=== PATIENT | male | born 1955 ===

== ENCOUNTER 2019-11-01 11:12 | Inpatient (IN) ==
[2019-11-01] MEDS ORDERED: SODIUM CHLORIDE 0.9% 1000ML 1,000 ML IV ONE (11:48)
[2019-11-01 12:14] LABS: Basophils # (auto) 0.03 K/uL (0-0.2); Basophils % (auto) 0.2 %; Eosinophils # (auto) 0.28 K/uL (0-0.5); Eosinophils % (auto) 1.4 %; Hemoglobin 13.8 g/dL (14.0-18.0); Immature Granulocytes # (auto) 0.06 K/uL (0.00-0.02); Immature Granulocytes % (auto) 0.3 %; Lymphocytes # (auto) 2.09 K/uL (1.2-3.4); Lymphocytes % (auto) 10.5 %; Mean Corpuscular Hemoglobin 29.9 pg (25-34); Mean Corpuscular Hgb Conc 34.5 g/dL (32-36); Mean Corpuscular Volume 86.8 fL (80-100); Mean Platelet Volume 9.6 fL (7.4-10.4); Monocytes # (auto) 1.94 K/uL (0.11-0.59); Monocytes % (auto) 9.8 %; Neutrophils # (auto) 15.48 K/uL (1.4-6.5); Neutrophils % (auto) 77.8 %; Platelet Count 286 K/uL (130-400); RDW Coefficient of Variation 13.6 % (11.5-14.5); RDW Standard Deviation 43.3 fL (36.4-46.3); Red Blood Count 4.61 M/uL (4.7-6.1); White Blood Count 19.88 K/uL (4.8-10.8)
[2019-11-01] MEDS ORDERED: ONDANSETRON INJ 2 MG/ML 2 ML VIAL ONE (12:18)
[2019-11-01 12:20] LABS: Appearance Urine Cloudy (Clear); Bilirubin Urine Negative (Negative); Blood Urine Negative (Negative); Color Urine Dark Yellow; Epithelial Cell Urine Auto 20-30 /lpf (0-5); Glucose Urine UA Negative (Negative); Ketones Urine Trace (Negative); Leukocyte Esterase Urine Trace (Negative); Nitrite Urine Negative (Negative); Protein Urine 1+ (Negative); RBC Urine Automated 0-4 /hpf (0-4); Specific Gravity Urine 1.027 (1.000-1.030); Urobilinogen Urine Negative (Negative); pH Urine 5.5 (4.5-7.5)
[2019-11-01 12:33] LABS: Mucus Urine Present (None Prsent)
--- NOTE | 2019-11-01 12:33 | Emergency Department Note ---
History of Present Illness General Chief Complaint: Abdominal Pain Stated Complaint: RIGHT SIDE Time Seen by Provider: 11/01/19 11:30 History of Present Illness Maximum Pain Intensity: 7 This patient is a 64-year-old male who presents to the emergency department with complaints of right lower abdominal pain for the last 2 weeks. He denies any nausea, vomiting or diarrhea. No fever. No urinary symptoms. He has tried ibuprofen with minimal relief of his symptoms. The pain does not radiate anywhere. Of note, the patient also complains of dyspnea on exertion that has been going on for several months. He denies any chest pain. No lightheadedness. The patient reports eating and drinking normally. He denies any cough or fever. He does note several tick bites over the last few years. Home Medications Home Medications Medication Instructions Recorded Confirmed Type vit C 250 mg-E 200 unit-zinc 40 1 tab PO QPM cap 03/29/19 11/01/19 History mg-copper 1 gc-dplpfu-qitfum capsule aspirin 81 mg tablet 81 mg PO DAILY #30 tab 04/07/19 11/01/19 History rosuvastatin 5 mg tablet 5 mg PO QPM 09/14/19 11/01/19 History amlodipine 2.5 mg tablet 2.5 mg PO DAILY #90 tab 10/07/19 11/01/19 Rx losartan 100 mg tablet 100 mg PO DAILY #90 tab 10/07/19 11/01/19 Rx sertraline 100 mg tablet 100 mg PO DAILY #90 tab 10/07/19 11/01/19 Rx triamcinolone acetonide 0.1 % 1 appln TOP BID PRN #30 gm 10/18/19 11/01/19 Rx topical cream metformin 500 mg PO BID 11/01/19 11/01/19 History Allergies Allergy/AdvReac Type Severity Reaction Status Date / Time fentanyl Allergy Unconscious Verified 11/01/19 18:41 rosuvastatin AdvReac headache Verified 11/01/19 12:35 Past Med/Surg History Medical History Colon polyps (Resolved) Surgical History H/O colonoscopy S/P appendectomy S/P cholecystectomy Family History Mother Cancer Social History marital status: Current Living Situation: Spouse current occupational status: retired Feels Safe at Home: Yes Smoking Status: Never smoker Number of Years Since Quit: 39 ; Second Hand Exposure: No ; Hx Alcohol Use: Yes Alcohol Intake Frequency: Rarely Hx Substance Use: No Childhood Exposure to Second-Hand Smoke: No caffeine: Yes (coffee) Dental Care, Regularly: No Physical Activity Frequency: Does not Exercise Seatbelt Use: always Review of Systems A total of 10 systems reviewed and were otherwise negative Physical Exam Vital Signs: Vital Signs - 24 hr 11/01/19 11:13 11/01/19 13:12 11/01/19 15:00 Temperature 36.7 C Temperature Source Oral Pulse Rate 78 Pulse Rate [Finger ] 68 61 Pulse Rate from Sp O2 Sensor Pulse Rhythm [Fing er] Regular Regular Pulse Strength [Fi nger] Normal Normal Respiratory Rate 18 18 20 Respiratory Effort / Characteristics Non-Labored Non-Labored Sponta neous Non-Labored Sponta neous Respiratory Depth Normal Normal Normal Respiratory Patter n Regular Regular Blood Pressure 137/81 Blood Pressure [Ri ght Arm] 145/82 H 134/78 Blood Pressure Enma n 99 Blood Pressure Enma n [Right Arm] 103 96 Blood Pressure Pos ition [Right Arm] Lying Lying Pulse Oximetry 97 99 98 Oxygen Delivery Me thod Room Air Room Air Room Air Oxygen Flow Rate Sepsis Recent Feve r Within 48 Hours No Sepsis New/Unexpla ined Change in Men samia Status No Sepsis Action Take n by Nursing No Action Required 11/01/19 17:00 11/01/19 18:15 11/01/19 18:22 Temperature Temperature Source Pulse Rate 57 L 56 L Pulse Rate [Finger ] 67 Pulse Rate from Sp O2 Sensor 58 L 57 L Pulse Rhythm [Fing er] Regular Pulse Strength [Fi nger] Normal Respiratory Rate 18 21 16 Respiratory Effort / Characteristics Non-Labored Sponta neous Respiratory Depth Normal Respiratory Patter n Regular Blood Pressure 146/80 H Blood Pressure [Ri ght Arm] 133/75 Blood Pressure Enma n 97 Blood Pressure Enma n [Right Arm] 94 Blood Pressure Pos ition [Right Arm] Lying Pulse Oximetry 98 95 95 Oxygen Delivery Me thod Room Air Nasal Cannula Nasal Cannula Oxygen Flow Rate 2 2 Sepsis Recent Feve r Within 48 Hours Sepsis New/Unexpla ined Change in Men samia Status Sepsis Action Take n by Nursing 11/01/19 18:25 11/01/19 18:26 11/01/19 18:30 Temperature Temperature Source Pulse Rate 58 L 58 L 59 L Pulse Rate [Finger ] Pulse Rate from Sp O2 Sensor 59 L 58 L 58 L Pulse Rhythm [Fing er] Pulse Strength [Fi nger] Respiratory Rate 19 17 23 Respiratory Effort / Characteristics Respiratory Depth Respiratory Patter n Blood Pressure 128/59 L 135/70 Blood Pressure [Ri ght Arm] Blood Pressure Enma n 68 92 Blood Pressure Enma n [Right Arm] Blood Pressure Pos ition [Right Arm] Pulse Oximetry 96 96 96 Oxygen Delivery Me thod Nasal Cannula Nasal Cannula Nasal Cannula Oxygen Flow Rate 2 2 2 Sepsis Recent Feve r Within 48 Hours Sepsis New/Unexpla ined Change in Men samia Status Sepsis Action Take n by Nursing 11/01/19 18:31 11/01/19 18:35 11/01/19 18:36 Temperature Temperature Source Pulse Rate 55 L 52 L 53 L Pulse Rate [Finger ] Pulse Rate from Sp O2 Sensor 54 L 53 L 54 L Pulse Rhythm [Fing er] Pulse Strength [Fi nger] Respiratory Rate 17 15 16 Respiratory Effort / Characteristics Respiratory Depth Respiratory Patter n Blood Pressure 117/61 Blood Pressure [Ri ght Arm] Blood Pressure Enma n 70 Blood Pressure Enma n [Right Arm] Blood Pressure Pos ition [Right Arm] Pulse Oximetry 96 96 96 Oxygen Delivery Me thod Nasal Cannula Nasal Cannula Nasal Cannula Oxygen Flow Rate 2 2 2 Sepsis Recent Feve r Within 48 Hours Sepsis New/Unexpla ined Change in Men samia Status Sepsis Action Take n by Nursing 11/01/19 18:40 11/01/19 18:41 11/01/19 18:45 Temperature Temperature Source Pulse Rate 53 L 49 L 47 L Pulse Rate [Finger ] Pulse Rate from Sp O2 Sensor 54 L 49 L 48 L Pulse Rhythm [Fing er] Pulse Strength [Fi nger] Respiratory Rate 17 15 18 Respiratory Effort / Characteristics Respiratory Depth Respiratory Patter n Blood Pressure 107/54 L 97/56 L Blood Pressure [Ri ght Arm] Blood Pressure Enma n 65 67 Blood Pressure Enma n [Right Arm] Blood Pressure Pos ition [Right Arm] Pulse Oximetry 96 95 97 Oxygen Delivery Me thod Nasal Cannula Nasal Cannula Oxygen Flow Rate 2 2 Sepsis Recent Feve r Within 48 Hours Sepsis New/Unexpla ined Change in Men samia Status Sepsis Action Take n by Nursing 11/01/19 18:46 11/01/19 18:50 11/01/19 18:51 Temperature Temperature Source Pulse Rate 49 L 52 L 53 L Pulse Rate [Finger ] Pulse Rate from Sp O2 Sensor 49 L 53 L 53 L Pulse Rhythm [Fing er] Pulse Strength [Fi nger] Respiratory Rate 16 13 13 Respiratory Effort / Characteristics Respiratory Depth Respiratory Patter n Blood Pressure 112/65 Blood Pressure [Ri ght Arm] Blood Pressure Enma n 72 Blood Pressure Enma n [Right Arm] Blood Pressure Pos ition [Right Arm] Pulse Oximetry 98 96 97 Oxygen Delivery Me thod Oxygen Flow Rate Sepsis Recent Feve r Within 48 Hours Sepsis New/Unexpla ined Change in Men samia Status Sepsis Action Take n by Nursing 11/01/19 19:07 11/01/19 19:08 11/01/19 19:10 Temperature Temperature Source Pulse Rate 56 L 57 L 58 L Pulse Rate [Finger ] Pulse Rate from Sp O2 Sensor 56 L 57 L 59 L Pulse Rhythm [Fing er] Pulse Strength [Fi nger] Respiratory Rate 15 19 17 Respiratory Effort / Characteristics Respiratory Depth Respiratory Patter n Blood Pressure 153/75 H 135/81 Blood Pressure [Ri ght Arm] Blood Pressure Enma n 106 86 Blood Pressure Enma n [Right Arm] Blood Pressure Pos ition [Right Arm] Pulse Oximetry 98 98 98 Oxygen Delivery Me thod Oxygen Flow Rate Sepsis Recent Feve r Within 48 Hours Sepsis New/Unexpla ined Change in Men samia Status Sepsis Action Take n by Nursing 11/01/19 19:11 11/01/19 19:15 11/01/19 19:16 Temperature Temperature Source Pulse Rate 55 L 54 L 54 L Pulse Rate [Finger ] Pulse Rate from Sp O2 Sensor 55 L 54 L 53 L Pulse Rhythm [Fing er] Pulse Strength [Fi nger] Respiratory Rate 15 14 14 Respiratory Effort / Characteristics Respiratory Depth Respiratory Patter n Blood Pressure 149/79 H Blood Pressure [Ri ght Arm] Blood Pressure Emna n 111 Blood Pressure Enma n [Right Arm] Blood Pressure Pos ition [Right Arm] Pulse Oximetry 98 98 99 Oxygen Delivery Me thod Oxygen Flow Rate Sepsis Recent Feve r Within 48 Hours Sepsis New/Unexpla ined Change in Men samia Status Sepsis Action Take n by Nursing 11/01/19 19:20 11/01/19 19:21 11/01/19 19:25 Temperature Temperature Source Pulse Rate 54 L 56 L 55 L Pulse Rate [Finger ] Pulse Rate from Sp O2 Sensor 54 L 55 L 55 L Pulse Rhythm [Fing er] Pulse Strength [Fi nger] Respiratory Rate 15 19 17 Respiratory Effort / Characteristics Respiratory Depth Respiratory Patter n Blood Pressure 149/77 H 144/79 H Blood Pressure [Ri ght Arm] Blood Pressure Enma n 106 95 Blood Pressure Enma n [Right Arm] Blood Pressure Pos ition [Right Arm] Pulse Oximetry 97 99 100 Oxygen Delivery Me thod Oxygen Flow Rate Sepsis Recent Feve r Within 48 Hours Sepsis New/Unexpla ined Change in Men samia Status Sepsis Action Take n by Nursing 11/01/19 19:26 11/01/19 19:30 11/01/19 19:31 Temperature Temperature Source Pulse Rate 54 L 54 L 55 L Pulse Rate [Finger ] Pulse Rate from Sp O2 Sensor 54 L 54 L 55 L Pulse Rhythm [Fing er] Pulse Strength [Fi nger] Respiratory Rate 21 12 12 Respiratory Effort / Characteristics Respiratory Depth Respiratory Patter n Blood Pressure 152/84 H Blood Pressure [Ri ght Arm] Blood Pressure Enma n 110 Blood Pressure Enma n [Right Arm] Blood Pressure Pos ition [Right Arm] Pulse Oximetry 100 100 99 Oxygen Delivery Me thod Oxygen Flow Rate Sepsis Recent Feve r Within 48 Hours Sepsis New/Unexpla ined Change in Men samia Status Sepsis Action Take n by Nursing 11/01/19 19:35 11/01/19 19:36 11/01/19 19:40 Temperature Temperature Source Pulse Rate 58 L 60 59 L Pulse Rate [Finger ] Pulse Rate from Sp O2 Sensor 58 L 58 L 60 Pulse Rhythm [Fing er] Pulse Strength [Fi nger] Respiratory Rate 19 14 16 Respiratory Effort / Characteristics Respiratory Depth Respiratory Patter n Blood Pressure 160/82 H 158/82 H Blood Pressure [Ri ght Arm] Blood Pressure Enma n 87 109 Blood Pressure Enma n [Right Arm] Blood Pressure Pos ition [Right Arm] Pulse Oximetry 98 100 99 Oxygen Delivery Me thod Oxygen Flow Rate Sepsis Recent Feve r Within 48 Hours Sepsis New/Unexpla ined Change in Men samia Status Sepsis Action Take n by Nursing Constitutional: WD/WN, vitals as above Eyes: EOM intact bilaterally ENMT: external ear and nose normal, oropharynx normal Neck: trachea midline Respiratory: normal respiratory effort, lungs clear to auscultation Cardiovascular: RRR, no murmur, no edema Gastrointestinal (Abdomen): Tenderness to palpation in the right lower quadrant. No guarding or rebound tenderness. Musculoskeletal: no cyanosis or clubbing, extremities motor strength 5/5 Skin: no rashes, warm and dry Neurologic: Alert and oriented x3. No focal motor deficits. Psychiatric: Acting appropriately Course Patient was seen and examined Vital signs including blood pressure were reviewed medications list was verified with patient Labs were obtained, and a saline lock was established The patient declined pain medication. He was hydrated with 1 L of normal collin ine. Upon reevaluation, the patient was complaining of pain. We discussed his results. He voiced understanding. The case was discussed with general surgery and subsequently the hospitalist team. The patient was ordered morphine 4 mg IV, Zofran 4 mg IV and Zosyn 4.5 g IV. Upon reevaluation, the patient was still complaining of pain. He was given fentanyl 75 mcg IV. Shortly thereafter, I was called to the bedside as the patient appeared to be having a seizure. He was rigid. There was urinary and bowel incontinence. There was diaphoresis and confusion. An EKG was repeated and unchanged. The patient was reevaluated and oriented. We discussed his results. He voiced understanding. The patient will be evaluated by the hospitalist team for likely inpatient management. Consultations Consultation #1: [facility] general surgery Consultation #2: [facility] hospitalist group Administered Medications Ioversol (Optiray 320 125ml) 117 ml IV ONCE PRN PRN Reason: Interaction Checking Stop: 11/05/19 14:17 Last Admin: 11/01/19 14:19 Dose: 117 ml Documented by: [id number] Discontinued Medications Fentanyl Citrate (Fentanyl Citrate) 75 mcg IV NOW STA Stop: 11/01/19 17:56 Last Admin: 11/01/19 17:58 Dose: 75 mcg Documented by: [id number] Sodium Chloride (Nss 1000ml) 1,000 mls @ 999 mls/hr IV .Q1H1M ONE Stop: 11/01/19 12:48 Last Infusion: 11/01/19 13:07 Dose: 0 mls/hr Documented by: [id number] Admin: 11/01/19 12:06 Dose: 999 mls/hr Documented by: [id number] Piperacillin Sod/Tazobactam Sod (Zosyn) 4.5 gm in 120 mls @ 240 mls/hr IV NOW ONE Stop: 11/01/19 17:44 Last Infusion: 11/01/19 17:49 Dose: 0 mls/hr Documented by: [id number] Admin: 11/01/19 17:19 Dose: 240 mls/hr Documented by: [id number] Morphine Sulfate (Morphine Sulfate) 4 mg IV NOW STA Stop: 11/01/19 17:16 Last Admin: 11/01/19 17:19 Dose: 4 mg Documented by: [id number] Ondansetron HCl (Zofran) Confirm Administered Dose 4 mg .ROUTE .STK-MED ONE Stop: 11/01/19 12: Last Admin: 11/01/19 12:20 Dose: 4 mg Documented by: [id number] Ondansetron HCl (Zofran) 4 mg IV NOW STA Stop: 11/01/19 17:16 Last Admin: 11/01/19 17:19 Dose: 4 mg Documented by: [id number] Medical Decision Making Differential Diagnosis Differential diagnosis: Ureteral stone, bowel obstruction, infectious etiology, mass, pulmonary embolus, CHF, cardiac disease, UTI, pneumonia, tickborne illness, among others Medical Records Attestation: I reviewed the patient's medical records. Home Medications Current Medication List: was personally reviewed by me Laboratory Data Attestation: I reviewed the patient's lab results. Result diagrams: 11/01/19 12:05 11/01/19 12:05 Lab Results 11/01/19 11/01/19 11/01/19 Range/Units 11:58 12:05 12:05 WBC 19.88 H (4.8-10.8) K/uL RBC 4.61 L (4.7-6.1) M/uL Hgb 13.8 L (14.0-18.0) g/dL Hct 40.0 L (42-52) % MCV 86.8 (80-100) fL MCH 29.9 (25-34) pg MCHC 34.5 (32-36) g/dL RDW Std Deviation 43.3 (36.4-46.3) fL RDW Coeff of Sean 13.6 (11.5-14.5) % Plt Count 286 (130-400) K/uL MPV 9.6 (7.4-10.4) fL Immature Gran % (Auto) 0.3 % Neut % (Auto) 77.8 % Lymph % (Auto) 10.5 % White % (Auto) 9.8 % Eos % (Auto) 1.4 % Baso % (Auto) 0.2 % Immature Gran # (Auto) 0.06 H (0.00-0.02) K/uL Neut # (Auto) 15.48 H (1.4-6.5) K/uL Lymph # (Auto) 2.09 (1.2-3.4) K/uL White # (Auto) 1.94 H (0.11-0.59) K/uL Eos # (Auto) 0.28 (0-0.5) K/uL Baso # (Auto) 0.03 (0-0.2) K/uL Echinocytes 1+ Sodium 139 (136-145) mmol/L Potassium 3.8 (3.5-5.1) mmol/L Chloride 107 (98-107) mmol/L Carbon Dioxide 26 (21-32) mmol/L Anion Gap 6.0 (3-11) BUN 17 (7-18) mg/dl Creatinine 1.11 (0.6-1.4) mg/dl Est Cr Clr Drug Dosing 89.6 ml/min Est GFR ( Amer) 80.3 Est GFR (Non-Af Amer) 69.3 BUN/Creatinine Ratio 15.0 (10-20) Glucose 126 H (70-99) mg/dl Lactate (0.4-2.0) mmol/L Calcium 9.0 (8.5-10.1) mg/dl Total Bilirubin 0.5 (0.2-1) mg/dl AST 17 (15-37) U/L ALT 29 (12-78) U/L Alkaline Phosphatase 77 (45-117) U/L Troponin I < 0.015 (0-0.045) ng/ml Total Protein 7.3 (6.4-8.2) gm/dl Albumin 3.0 L (3.4-5.0) gm/dl Globulin 4.3 H (2.5-4.0) gm/dl Albumin/Globulin Ratio 0.7 L (0.9-2) TSH 1.310 (0.300-4.500) uIu/ml Urine Color Dark Yellow Urine Appearance Cloudy A (Clear) Urine pH 5.5 (4.5-7.5) Ur Specific [place] 1.027 (1.000-1.030) Urine Protein 1+ H (Negative) Urine Glucose (UA) Negative (Negative) Urine Ketones Trace H (Negative) Urine Blood Negative (Negative) Urine Nitrite Negative (Negative) Urine Bilirubin Negative (Negative) Urine Urobilinogen Negative (Negative) Ur Leukocyte Esterase Trace H (Negative) Urine WBC (Auto) 1-5 (0-5) /hpf Urine RBC (Auto) 0-4 (0-4) /hpf U Hyaline Cast (Auto) 1-5 (0-5) /lpf U Epithel Cells (Auto) 20-30 H (0-5) /lpf Urine Bacteria (Auto) 1+ H (Negative) Urine Mucus Present A (None Prsent) Anaplasma Smear See Comment Lyme Disease IgG Ab (Negative) Lyme Disease IgM Ab (Negative) 11/01/19 11/01/19 Range/Units 12:05 15:16 WBC (4.8-10.8) K/uL RBC (4.7-6.1) M/uL Hgb (14.0-18.0) g/dL Hct (42-52) % MCV (80-100) fL MCH (25-34) pg MCHC (32-36) g/dL RDW Std Deviation (36.4-46.3) fL RDW Coeff of Sean (11.5-14.5) % Plt Count (130-400) K/uL MPV (7.4-10.4) fL Immature Gran % (Auto) % Neut % (Auto) % Lymph % (Auto) % White % (Auto) % Eos % (Auto) % Baso % (Auto) % Immature Gran # (Auto) (0.00-0.02) K/uL Neut # (Auto) (1.4-6.5) K/uL Lymph # (Auto) (1.2-3.4) K/uL White # (Auto) (0.11-0.59) K/uL Eos # (Auto) (0-0.5) K/uL Baso # (Auto) (0-0.2) K/uL Echinocytes Sodium (136-145) mmol/L Potassium (3.5-5.1) mmol/L Chloride (98-107) mmol/L Carbon Dioxide (21-32) mmol/L Anion Gap (3-11) BUN (7-18) mg/dl Creatinine (0.6-1.4) mg/dl Est Cr Clr Drug Dosing ml/min Est GFR ( Amer) Est GFR (Non-Af Amer) BUN/Creatinine Ratio (10-20) Glucose (70-99) mg/dl Lactate 0.8 (0.4-2.0) mmol/L Calcium (8.5-10.1) mg/dl Total Bilirubin (0.2-1) mg/dl AST (15-37) U/L ALT (12-78) U/L Alkaline Phosphatase (45-117) U/L Troponin I (0-0.045) ng/ml Total Protein (6.4-8.2) gm/dl Albumin (3.4-5.0) gm/dl Globulin (2.5-4.0) gm/dl Albumin/Globulin Ratio (0.9-2) TSH (0.300-4.500) uIu/ml Urine Color Urine Appearance (Clear) Urine pH (4.5-7.5) Ur Specific [place] (1.000-1.030) Urine Protein (Negative) Urine Glucose (UA) (Negative) Urine Ketones (Negative) Urine Blood (Negative) Urine Nitrite (Negative) Urine Bilirubin (Negative) Urine Urobilinogen (Negative) Ur Leukocyte Esterase (Negative) Urine WBC (Auto) (0-5) /hpf Urine RBC (Auto) (0-4) /hpf U Hyaline Cast (Auto) (0-5) /lpf U Epithel Cells (Auto) (0-5) /lpf Urine Bacteria (Auto) (Negative) Urine Mucus (None Prsent) Anaplasma Smear Lyme Disease IgG Ab Negative (Negative) Lyme Disease IgM Ab Negative (Negative) Imaging Data Attestation: I personally reviewed and interpreted this imaging study as follows: Radiologist's Impression: CTA chest IMPRESSION: 1. There is no evidence of pulmonary embolus in the main, lobar, or segmental pulmonary arteries. 2. Trace right pleural effusion. 3. No airspace consolidation is seen typical for pneumonia. 4. Additional findings as above. ACT 112: Negative or not required by law. Electronically signed by: Michael Robledo M.D. 11/01/2019 2:37 PM Dictated: 11/01/190 Transcribed: 11/01/191429 CT abdomen and pelvis with IV and oral contrast IMPRESSION: 1. 5.9 x 5.8 cm thick-walled hypodense mass-like abnormality of the base of the cecum with moderate inflammation and tract extending to the abdominal wall. Indistinct anterior wall may reflect a contained perforation. No free air. The findings are suspicious for a colonic adenocarcinoma. Alternatively, perforated cecal diverticulitis with abscess could appear similar. Discussed with Roxie Smith at time of dictation. 2. A few prominent ileocolic lymph nodes. No pathologically enlarged lymph nodes. 3. No hepatic lesions. 4. No bowel obstruction. ACT 112: Negative or not required by law. Electronically signed by: Pedro Tovar M.D. 11/01/2019 2:55 PM Dictated: 11/01/191426 Transcribed: 11/01/191426 CT head without contrast IMPRESSION: No acute intracranial abnormality. ACT 112: Negative or not required by law. The above report was generated using voice recognition software. It may contain grammatical, syntax or spelling errors. Electronically signed by: Guicho Villa M.D. 11/01/2019 7:11 PM Dictated: 11/01/191908 Transcribed: 11/01/191908 ECG Data Attestation: I personally reviewed and interpreted this ECG as follows: Indication: other Rate (beats per minute): 66 Rhythm: normal sinus Comparison ECG Date: no prior available Additional Comments: No acute ischemic changes noted. No ectopy. No prior for comparison. MDM Narrative This patient is a 64-year-old male who presents the emergency department with a main complaint of right lower abdominal pain in addition to significant fatigue. On exam, he was tender to palpation in that area. His labs reveal significant leukocytosis. Imaging is concerning for possible diverticulitis with abscess versus malignancy. Given the patient's white count, I was concerned for infection. For this reason, the patient was covered with IV antibiotics. General surgery was consulted. They felt IV antibiotic therapy alone at this point is appropriate. The patient will be admitted for further treatment. Impression & Plan Intra-abdominal abscess Discharge Plan Visit Data Chief Complaint: Abdominal Pain Stated Complaint: RIGHT SIDE ED Provider: Derick Martinez ED Midlevel Provider: Roxie Smith Discharge Problem: Intra-abdominal abscess Patient Disposition: Admitted As Inpatient Discharge Instructions Interventions: ED Discharge Assessment Last Done: 11/01/19 19:48 Forms Stand Alone Forms: Call Back Authorization, My [facility], Important Visit Information Prescriptions Prescriptions: No Action sertraline 100 mg tablet 100 mg PO DAILY Qty: 90 RF: 0 triamcinolone acetonide 0.1 % cream 1 appln TOP BID PRN (Reason: rash) Qty: 30 RF: 0 losartan 100 mg tablet 100 mg PO DAILY Qty: 90 RF: 0 amlodipine 2.5 mg tablet 2.5 mg PO DAILY Qty: 90 RF: 0 PreserVision AREDS-2 [id number] aw-[id number]-mg capsule 1 tab PO QPM RF: 0 aspirin 81 mg tablet 81 mg PO DAILY Qty: 30 RF: 0 rosuvastatin [Crestor] 5 mg tablet 5 mg PO QPM RF: 0 metformin 500 mg tablet extended release 24 hr 500 mg PO BID RF: 0 Referrals Referrals: Lupe Jacob MD [Primary Care Provider] -
[2019-11-01 12:34] LABS: Alanine Aminotransferase 29 U/L (12-78); Aspartate Aminotransferase 17 U/L (15-37); Blood Urea Nitrogen 17 mg/dl (7-18); Carbon Dioxide 26 mmol/L (21-32); Chloride 107 mmol/L (98-107); Creatinine Clr Calc Pharmacy 89.6 ml/min; Est GFR (African American) 80.3; Est GFR (Non-African American) 69.3; Glucose 126 mg/dl (70-99); Potassium 3.8 mmol/L (3.5-5.1); Sodium 139 mmol/L (136-145)
[2019-11-01 12:34] LABS: Bacteria Urine Automated 1+ (Negative)
[2019-11-01 12:45] LABS: Albumin Globulin Ratio 0.7 (0.9-2); Alkaline Phosphatase 77 U/L (45-117); Bilirubin,Total 0.5 mg/dl (0.2-1); Globulin 4.3 gm/dl (2.5-4.0); Total Protein 7.3 gm/dl (6.4-8.2); Troponin I < 0.015 ng/ml (0-0.045)
[2019-11-01 12:52] LABS: Echinocytes 1+
[2019-11-01 13:01] LABS: Lyme Ab IgG w/WB Rflx Negative (Negative); Lyme Ab IgM w/WB Rflx Negative (Negative)
[2019-11-01] MEDS ORDERED: OPTIRAY 320 125ml IV PRN (14:18)
--- NOTE | 2019-11-01 14:38 | CT Scan Report ---
CT ANGIOGRAM OF THE CHEST COMBO CLINICAL HISTORY: Right-sided chest pain. COMPARISON STUDY: Chest x-ray dated 09/16/2019. TECHNIQUE: Before and following the IV administration of 117 cc of Optiray 320, CT angiogram of the c hest was performed from the thoracic inlet to the upper abdomen utilizing the dissection protocol. Im ages are reviewed in the axial, sagittal, and coronal planes. 3-D MIPS images are created and assesse d. IV contrast was administered without complication. A dose lowering technique was utilized adherin g to the principles of ALARA. CT DOSE: 2400.17 mGy.cm FINDINGS: Thyroid: Imaged portions of the thyroid gland are normal in size and attenuation. Thoracic aorta: The thoracic aorta is normal in caliber and demonstrates 4-vessel variant arch anatom y. No dissection is seen. Pulmonary vasculature: The pulmonary trunk is normal in caliber. There are no central filling defects identified in the pulmonary vessels to suggest pulmonary embolus. Note that this examination was not specifically protocoled to assess for pulmonary emboli. Heart: The heart is top normal in size and without pericardial effusion. There are coronary artery ca lcifications. Lungs and pleural spaces: Evaluation of the lung parenchyma is degraded by motion artifact. There is trace right pleural effusion. Scarring/atelectasis is noted at both lung bases. No airspace consolida tion is identified typical for pneumonia. The trachea and central airways are clear. Mediastinum: There is no mediastinal lymphadenopathy. Tsering: Clear. Axillae: There is no axillary lymphadenopathy. Upper abdomen: There is a small hiatal hernia. Partially visualized upper abdominal viscera is otherw ise grossly unremarkable. Skeletal structures: The skeletal structures are osteopenic. There are minimal superior endplate comp ression deformity of T2, T3, and T4. No lytic or blastic bony lesions are seen. IMPRESSION: 1. There is no evidence of pulmonary embolus in the main, lobar, or segmental pulmonary arteries. 2. Trace right pleural effusion. 3. No airspace consolidation is seen typical for pneumonia. 4. Additional findings as above. ACT 112: Negative or not required by law. Electronically signed by: Michael Robledo M.D. 11/01/2019 2:37 PM
--- NOTE | 2019-11-01 14:56 | CT Scan Report ---
CT OF THE ABDOMEN AND PELVIS WITH CONTRAST CLINICAL HISTORY: Right lower quadrant abdominal pain. COMPARISON STUDY: None. TECHNIQUE: Following IV administration of 117 mL of Optiray-320, axial images of the abdomen and pelv is were obtained from the lung bases to the proximal femurs. Images were reviewed in the axial, sagit samia, and coronal planes. IV contrast was administered without complication. Automated exposure contr ol was utilized for the study. A dose lowering technique was utilized adhering to the principles of ALARA. FINDINGS: Please note that the chest CT will be reported separately. The liver, spleen, adrenal gland s, kidneys and pancreas are unremarkable. There is no biliary ductal dilatation status post cholecyst ectomy. There is no pancreatic ductal dilatation or peripancreatic infiltration. There is no hydronep hrosis. By history, the appendix is surgically absent. Note is made of a thick walled 5.9 x 5.8 cm mu ltiloculated mass versus abscess within the base of the cecum. There is moderate associated inflammat ion with an apparent tract extending into the lateral abdominal wall. The anterior wall of this abnor mality is indistinct. Adjacent locules of gas are noted which may reflect a contained perforation. Th ere is no free air. Colonic diverticula are noted. Prominent ileocolic lymph nodes measure up to 9 mm in short axis diameter. No pathologically enlarged nodes are noted. There is no resultant bowel obst ruction. No additional sites of bowel wall thickening are noted. IMPRESSION: 1. 5.9 x 5.8 cm thick-walled hypodense mass-like abnormality of the base of the cecum with moderate i nflammation and tract extending to the abdominal wall. Indistinct anterior wall may reflect a contain ed perforation. No free air. The findings are suspicious for a colonic adenocarcinoma. Alternatively, perforated cecal diverticulitis with abscess could appear similar. Discussed with Roxie Smith at ti me of dictation. 2. A few prominent ileocolic lymph nodes. No pathologically enlarged lymph nodes. 3. No hepatic lesions. 4. No bowel obstruction. ACT 112: Negative or not required by law. Electronically signed by: Pedro Tovar M.D. 11/01/2019 2:55 PM
--- NOTE | 2019-11-01 16:50 | Surgery Consultation ---
Date of Consultation November 01, 2019 Assessment & Plan (1) Perforation of cecum due to diverticulitis: Would begin broad spectrum antibiotics, zosyn or cipro and flagyl IV IVF NPO if improves will need colonscopy, GI consult repeat CT scan either soon if worsens or in a few days if does improve History of Present Illness Reason for Consultation: Likely perforated cecal diverticular abscess, <6cm. History of Present Illness This patient is a 64-year-old male who presented to ED with abdomianl pain and chills over the last few days. The pain began diffusely and located to RLQ. Had a previous open appendectomy. The pain does not radiate and he denies N/V. He also complains of dyspnea on exertion that has been going on for several months. He denies any chest pain. No lightheadedness. The patient reports eating and drinking normally. He denies any cough or fever. Allergies Allergy/AdvReac Type Severity Reaction Status Date / Time rosuvastatin AdvReac headache Verified 11/01/19 12:35 Home Medications Home Medications Medication Instructions Recorded Confirmed Type vit C 250 mg-E 200 unit-zinc 40 1 tab PO QPM cap 03/29/19 11/01/19 History mg-copper 1 [id number] capsule aspirin 81 mg tablet 81 mg PO DAILY #30 tab 04/07/19 11/01/19 History rosuvastatin 5 mg tablet 5 mg PO QPM 09/14/19 11/01/19 History amlodipine 2.5 mg tablet 2.5 mg PO DAILY #90 tab 10/07/19 11/01/19 Rx losartan 100 mg tablet 100 mg PO DAILY #90 tab 10/07/19 11/01/19 Rx sertraline 100 mg tablet 100 mg PO DAILY #90 tab 10/07/19 11/01/19 Rx triamcinolone acetonide 0.1 % 1 appln TOP BID PRN #30 gm 10/18/19 11/01/19 Rx topical cream metformin 500 mg PO BID 11/01/19 11/01/19 History Patient History Medical History Colon polyps (Resolved) Surgical History H/O colonoscopy S/P appendectomy S/P cholecystectomy Family History Mother Cancer Social History marital status: Current Living Situation: Spouse current occupational status: retired Feels Safe at Home: Yes Smoking Status: Never smoker Number of Years Since Quit: 39 ; Second Hand Exposure: No ; Hx Alcohol Use: Yes Alcohol Intake Frequency: Rarely Hx Substance Use: No Childhood Exposure to Second-Hand Smoke: No caffeine: Yes (coffee) Dental Care, Regularly: No Physical Activity Frequency: Does not Exercise Seatbelt Use: always Review of Systems Constitutional: + chills and + sweats; no fever, no weakness, no weight loss, no weight gain and no increased appetite Eyes: no diplopia Respiratory: + dyspnea and + dyspnea on exertion; no cough and no chest congestion Cardiovascular: + dyspnea; no chest pain, no chest pain at rest and no chest pain with activity Gastrointestinal: + abdominal pain and + bloating; no nausea, no vomiting and no change in bowel habits Genitourinary: no dysuria Musculoskeletal: + back pain; no neck pain and no joint pain Integumentary: no rash Neurologic: no localized weakness and no generalized weakness Psychiatric: no behavioral changes Endocrine: no fatigue, no polydipsia and no polyphagia Hematologic / Lymphatic: no easy bleeding Physical Exam Constitutional: well developed and well nourished Eyes: PERRL, conjunctivae normal, anicteric sclerae Neck: trachea midline Respiratory: normal respiratory effort, lungs clear to auscultation Cardiovascular: RRR, no murmur, no edema Gastrointestinal (Abdomen): Inspection/Auscultation: abdomen normal to inspection, + abdomen distended and normal bowel sounds Percussion/Palpation: + abdomen tender; no hernia Musculoskeletal: Head/Neck/Chest: + head abnormal to inspection and normocephalic Skin: no rashes, warm and dry Psychiatric: Orientation: alert and oriented x 3 Lymphatic: no lymphadenopathy Results & Data Vital Signs (Past 12 Hours) Vital Signs Temp Pulse Pulse Resp BP BP Pulse Ox 11/01/19 15:00 61 20 134/78 98 11/01/19 13:12 68 18 145/82 H 99 11/01/19 11:13 36.7 C 78 18 137/[address] OF THE ABDOMEN AND PELVIS WITH CONTRAST CLINICAL HISTORY: Right lower quadrant abdominal pain. COMPARISON STUDY: None. TECHNIQUE: Following IV administration of 117 mL of Optiray-320, axial images of the abdomen and pelvis were obtained from the lung bases to the proximal femurs. Images were reviewed in the axial, sagittal, and coronal planes. IV contrast was administered without complication. Automated exposure control was utilized for the study. A dose lowering technique was utilized adhering to the principles of ALARA. FINDINGS: Please note that the chest CT will be reported separately. The liver, spleen, adrenal glands, kidneys and pancreas are unremarkable. There is no biliary ductal dilatation status post cholecystectomy. There is no pancreatic ductal dilatation or peripancreatic infiltration. There is no hydronephrosis. By history, the appendix is surgically absent. Note is made of a thick walled 5.9 x 5.8 cm multiloculated mass versus abscess within the base of the cecum. There is moderate associated inflammation with an apparent tract extending into the lateral abdominal wall. The anterior wall of this abnormality is indistinct. Adjacent locules of gas are noted which may reflect a contained perforation. There is no free air. Colonic diverticula are noted. Prominent ileocolic lymph nodes measure up to 9 mm in short axis diameter. No pathologically enlarged nodes are noted. There is no resultant bowel obstruction. No additional sites of bowel wall thickening are noted. IMPRESSION: 1. 5.9 x 5.8 cm thick-walled hypodense mass-like abnormality of the base of the cecum with moderate inflammation and tract extending to the abdominal wall. Indistinct anterior wall may reflect a contained perforation. No free air. The findings are suspicious for a colonic adenocarcinoma. Alternatively, perforated cecal diverticulitis with abscess could appear similar. Discussed with Roxie Smith at time of dictation. 2. A few prominent ileocolic lymph nodes. No pathologically enlarged lymph nodes. 3. No hepatic lesions. 4. No bowel obstruction.
[2019-11-01] MEDS ORDERED: PIPERACILLIN/TAZOBACTAM 4.5 GM/120 ML BAG IV ONE (17:15)
[2019-11-01] MEDS ORDERED: ONDANSETRON INJ 2 MG/ML 2 ML VIAL IV STA (17:15)
[2019-11-01] MEDS ORDERED: PIPERACILL/TAZOBAC CONSULT ACTIVE PRN (17:15)
[2019-11-01] MEDS ORDERED: MoRPHine SULFATE 4 MG/ML 1 ML CARP\\VIAL IV STA (17:15)
[2019-11-01] MEDS ORDERED: fentaNYL citrate 100 MCG/2 ML VIAL IV STA (17:55)
--- NOTE | 2019-11-01 19:12 | CT Scan Report ---
CT head/brain wo con CLINICAL HISTORY: 64 years-old Male with ?seizure. Acute seizure like activity TECHNIQUE: Multiple axial CT images of the head were obtained without contrast. A dose lowering tech nique was utilized adhering to the principles of ALARA. CT DOSE: 614.27 mGy.cm COMPARISON: None. FINDINGS: No acute intracranial hemorrhage, midline shift, intracranial mass, hydrocephalus, territorial ischem ia or abnormal extra-axial collection. Increased attenuation of the vascular structures secondary to recent contrast-enhanced exam. This limits evaluation for subtle acute intracranial hemorrhage. The calvarium is intact. The paranasal sinuses, mastoid air cells, and middle ear cavities are clear . IMPRESSION: No acute intracranial abnormality. ACT 112: Negative or not required by law. The above report was generated using voice recognition software. It may contain grammatical, syntax o r spelling errors. Electronically signed by: Guicho Villa M.D. 11/01/2019 7:11 PM
--- NOTE | 2019-11-01 19:25 | History & Physical Report ---
Date of Service November 01, 2019 Assessment & Plan (1) Abdominal pain: 64-year-old male was admitted on 01 November 2019 for abdominal pain and possible syncope vs seizure vs adverse drug reaction. Abdominal pain, colonic mass versus abscess: Pain for two weeks without associated N/V/D, known fever, or bowel changes. Has a notably distended abdomen as well as lower abdominal TTP but not overtly peritoneal. - In ED, afebrile, not tachycardic or tachypneic, mild hypertension, and normal room SpO2. WBC 20, lactate 0.8. Electrolytes okay. Normal TSH and troponin. EKG NSR 66. UA is dirty. Blood and urine cultures sent. CT a/p notes almost 6 x 6 cm mass-like abnormality at the base of the cecum. Radiology read is suspicious for adenocarcinoma versus perforated cecal diverticulitis with abscess. - In ED, given IVF as well as morphine, Zofran, fentanyl, and a dose of Zosyn. Seen by general surgery (see related note) in ED as well. They recommended antibiotics, IVF, NPO. - On admit, will start cipro and flagyl. Will leave timing of GI consult to primary hospitalist team. Keep NPO and on IVF. Check routine labs as well as CEA and CA 19-9 testing. As a precaution, will type and screen. Adverse drug reaction vs syncope vs seizure: See symptomatic discussion in HPI. No known history of seizures but did have a potential adverse reaction to pain medication years ago. - In ED, EKG was NSR 64. Briefly SBP 90s but improved to 110s without acute intervention. CT head noted no acute abnormality. - Will check a TnI now and at six hours (with EKG) as a precaution. Getting IVF. - Hold narcotic pain meds. Tylenol IV q8h scheduled for pain. Incidental imaging findings: - Trace right pleural effusion on CTA chest. - Small hiatal hernia on CTA chest. - Minimal superior endplate compression deformities at T2-T4 on CTA chest. - Prominent ileocolic lymph nodes on CT a/p. Ongoing medical issues: - Hypertension, hyperlipidemia: Holding home amlodipine, aspirin, losartan, rosuvastatin (while NPO). - Diabetes mellitus: Sep 2019 HbA1c is 7.6. At home is on metformin. On insulin sliding scale here. - Depression: Holding home sertraline (while NPO). Code status: Full code. Diet: NPO. DVT prophy: SCDs. Hold chemical prophy in case of need for emergent surgery. PT/OT: Deferred. Disbo: Admit to PCU telemetry. (2) Colonic mass: (3) Syncope and collapse: (4) Diabetes mellitus: (5) Benign essential hypertension: (6) Hyperlipidemia: (7) Depression: (8) Hiatal hernia: History of Present Illness Primary Care Provider: Lupe Jacob MD 64-year-old male presents complaining of right lower quadrant regional abdominal pain over the past two weeks. Denies any history of the same, nausea or vomiting or diarrhea, or known fevers. On review of systems, he notes some dyspnea with exertion for the past few months but no related chest pain. No other acute patient concerns initially. - While in the ED, patient received initial doses of morphine and Zosyn. Per the , after the morphine the patient had the feeling of increased abdominal gas pains. Some brief time later he was given a dose of fentanyl. Patient then complained to his that he had much greater abdominal gas pains and wanted to walk it off. The patient was able to stand at the side of the bed when, according to his , he immediately became bright red flushed and then collapsed back onto the bed. He remained immobile for 45 to 60 seconds and was incontinent. Since that time patient has remained amnestic to these events and is a bit confused though is alert and grossly oriented. - At the time of this H&P, patient does not recall the events of this syncope vs seizure. He and his states that many years ago he had an abscessed tooth. He received some unknown pain medication at that time and had an adverse reaction a few hours later. He says related evaluation for this was inconclusive but he does not know specifics. He continues to complain of generalized abdominal pain. He is also noted to be transiently acutely diaphoretic but denies any acute chest pain or difficulty breathing. - Past medical history includes hypertension, hyperlipidemia, diabetes, depression. - Past surgical history includes cholecystectomy, appendectomy, colonoscopy. - Social history includes former smoker. Rare alcohol use. Lives at home with spouse. Allergies Allergy/AdvReac Type Severity Reaction Status Date / Time fentanyl Allergy Unconscious Verified 11/01/19 18:41 rosuvastatin AdvReac headache Verified 11/01/19 12:35 Home Medications Home Medications Medication Instructions Recorded Confirmed Type vit C 250 mg-E 200 unit-zinc 40 1 tab PO QPM cap 03/29/19 11/01/19 History mg-copper 1 [id number]-[id number] capsule aspirin 81 mg tablet 81 mg PO DAILY #30 tab 04/07/19 11/01/19 History rosuvastatin 5 mg tablet 5 mg PO QPM 09/14/19 11/01/19 History amlodipine 2.5 mg tablet 2.5 mg PO DAILY #90 tab 10/07/19 11/01/19 Rx losartan 100 mg tablet 100 mg PO DAILY #90 tab 10/07/19 11/01/19 Rx sertraline 100 mg tablet 100 mg PO DAILY #90 tab 10/07/19 11/01/19 Rx triamcinolone acetonide 0.1 % 1 appln TOP BID PRN #30 gm 10/18/19 11/01/19 Rx topical cream metformin 500 mg PO BID 11/01/19 11/01/19 History Past Med/Surg History Medical History Colon polyps (Resolved) Surgical History H/O colonoscopy S/P appendectomy S/P cholecystectomy Family History Mother Cancer Social History Preferred Language: Divehi Communication Ability: Effective Boiler/Chiller Technician Required: No Beliefs That Will Affect Care: None marital status: Current Living Situation: Spouse current occupational status: retired Other Information That Helps Us Care for You: No Feels Safe at Home: Yes Safety Concerns: Feels Safe At This Time Smoking Status: Former smoker Do You Dip or Chew Tobacco: Yes ; Number of Years Since Quit: 39 ; Second Hand Exposure: No ; Tobacco Cessation Education Requested by Patient: No Hx Alcohol Use: No Hx Substance Use: No Childhood Exposure to Second-Hand Smoke: No caffeine: Yes (coffee) Dental Care, Regularly: No Physical Activity Frequency: Does not Exercise Seatbelt Use: always Review of Systems Review of Systems: At the time of this H&P, unable to obtain full ROS due to patient's still confused state. Physical Exam Physical Exam: GENERAL: Awake, alert to self and date and location but is confused about ED events. Has been quite diaphoretic which is improving. Appears uncomfortable due to abdominal pain. HENT: Normocephalic, atraumatic. Oropharynx unremarkable. EYES: Normal conjunctiva. Sclera non-icteric. NECK: Inspection normal. Non-tender. Supple and full ROM. No nuchal rigidity. CARDIAC: +S1S2 regular bradycardia, no murmurs. RESPIRATORY: Clear to auscultation. No wheezes or rales. Normal respiratory effort. GI: +BS, soft. Positive generalized distention. Positive tenderness to palpation in the right > bilateral lower quadrants. No overt peritoneal tenderness. EXTREMITIES: No pedal edema or calf tenderness. Moving all extremities naturally and easily. NEURO: No gross neuro deficits. Results & Data Vital Signs (Past 12 Hours) Vital Signs Temp Pulse Pulse Resp BP BP Pulse Ox 11/01/19 18:41 49 L 15 95 11/01/19 18:40 53 L 17 107/54 L 96 11/01/19 18:36 53 L 16 96 11/01/19 18:35 52 L 15 117/61 96 11/01/19 18:31 55 L 17 96 11/01/19 18:30 59 L 23 135/70 96 11/01/19 18:26 58 L 17 128/59 L 96 11/01/19 18:25 58 L 19 96 11/01/19 18:22 56 L 16 95 11/01/19 18:15 57 L 21 146/80 H 95 11/01/19 17:00 67 18 133/75 98 11/01/19 15:00 61 20 134/78 98 11/01/19 13:12 68 18 145/82 H 99 11/01/19 11:13 36.7 C 78 18 137/81 97 Laboratory Results 11/01/19 11/01/19 11/01/19 Range/Units 15:16 12:05 12:05 WBC (4.8-10.8) K/uL RBC (4.7-6.1) M/uL Hgb (14.0-18.0) g/dL Hct (42-52) % MCV (80-100) fL MCH (25-34) pg MCHC (32-36) g/dL RDW Std Deviation (36.4-46.3) fL RDW Coeff of Sean (11.5-14.5) % Plt Count (130-400) K/uL MPV (7.4-10.4) fL Immature Gran % (Auto) % Neut % (Auto) % Lymph % (Auto) % [place] % (Auto) % Eos % (Auto) % Baso % (Auto) % Immature Gran # (Auto) (0.00-0.02) K/uL Neut # (Auto) (1.4-6.5) K/uL Lymph # (Auto) (1.2-3.4) K/uL [place] # (Auto) (0.11-0.59) K/uL Eos # (Auto) (0-0.5) K/uL Baso # (Auto) (0-0.2) K/uL Echinocytes Sodium 139 (136-145) mmol/L Potassium 3.8 (3.5-5.1) mmol/L Chloride 107 (98-107) mmol/L Carbon Dioxide 26 (21-32) mmol/L Anion Gap 6.0 (3-11) BUN 17 (7-18) mg/dl Creatinine 1.11 (0.6-1.4) mg/dl Est Cr Clr Drug Dosing 89.6 ml/min Est GFR ( Amer) 80.3 Est GFR (Non-Af Amer) 69.3 BUN/Creatinine Ratio 15.0 (10-20) Glucose 126 H (70-99) mg/dl Lactate 0.8 (0.4-2.0) mmol/L Calcium 9.0 (8.5-10.1) mg/dl Total Bilirubin 0.5 (0.2-1) mg/dl AST 17 (15-37) U/L ALT 29 (12-78) U/L Alkaline Phosphatase 77 (45-117) U/L Troponin I < 0.015 (0-0.045) ng/ml Total Protein 7.3 (6.4-8.2) gm/dl Albumin 3.0 L (3.4-5.0) gm/dl Globulin 4.3 H (2.5-4.0) gm/dl Albumin/Globulin Ratio 0.7 L (0.9-2) TSH 1.310 (0.300-4.500) uIu/ml Urine Color Urine Appearance (Clear) Urine pH (4.5-7.5) Ur Specific [place] (1.000-1.030) Urine Protein (Negative) Urine Glucose (UA) (Negative) Urine Ketones (Negative) Urine Blood (Negative) Urine Nitrite (Negative) Urine Bilirubin (Negative) Urine Urobilinogen (Negative) Ur Leukocyte Esterase (Negative) Urine WBC (Auto) (0-5) /hpf Urine RBC (Auto) (0-4) /hpf U Hyaline Cast (Auto) (0-5) /lpf U Epithel Cells (Auto) (0-5) /lpf Urine Bacteria (Auto) (Negative) Urine Mucus (None Prsent) Anaplasma Smear A. phagocytophilum DNA Lyme Disease IgG Ab Negative (Negative) Lyme Disease IgM Ab Negative (Negative) 11/01/19 11/01/19 11/01/19 Range/Units 12:05 12:05 11:58 WBC 19.88 H (4.8-10.8) K/uL RBC 4.61 L (4.7-6.1) M/uL Hgb 13.8 L (14.0-18.0) g/dL Hct 40.0 L (42-52) % MCV 86.8 (80-100) fL MCH 29.9 (25-34) pg MCHC 34.5 (32-36) g/dL RDW Std Deviation 43.3 (36.4-46.3) fL RDW Coeff of Sean 13.6 (11.5-14.5) % Plt Count 286 (130-400) K/uL MPV 9.6 (7.4-10.4) fL Immature Gran % (Auto) 0.3 % Neut % (Auto) 77.8 % Lymph % (Auto) 10.5 % [place] % (Auto) 9.8 % Eos % (Auto) 1.4 % Baso % (Auto) 0.2 % Immature Gran # (Auto) 0.06 H (0.00-0.02) K/uL Neut # (Auto) 15.48 H (1.4-6.5) K/uL Lymph # (Auto) 2.09 (1.2-3.4) K/uL [place] # (Auto) 1.94 H (0.11-0.59) K/uL Eos # (Auto) 0.28 (0-0.5) K/uL Baso # (Auto) 0.03 (0-0.2) K/uL Echinocytes 1+ Sodium (136-145) mmol/L Potassium (3.5-5.1) mmol/L Chloride (98-107) mmol/L Carbon Dioxide (21-32) mmol/L Anion Gap (3-11) BUN (7-18) mg/dl Creatinine (0.6-1.4) mg/dl Est Cr Clr Drug Dosing ml/min Est GFR ( Amer) Est GFR (Non-Af Amer) BUN/Creatinine Ratio (10-20) Glucose (70-99) mg/dl Lactate (0.4-2.0) mmol/L Calcium (8.5-10.1) mg/dl Total Bilirubin (0.2-1) mg/dl AST (15-37) U/L ALT (12-78) U/L Alkaline Phosphatase (45-117) U/L Troponin I (0-0.045) ng/ml Total Protein (6.4-8.2) gm/dl Albumin (3.4-5.0) gm/dl Globulin (2.5-4.0) gm/dl Albumin/Globulin Ratio (0.9-2) TSH (0.300-4.500) uIu/ml Urine Color Dark Yellow Urine Appearance Cloudy A (Clear) Urine pH 5.5 (4.5-7.5) Ur Specific [place] 1.027 (1.000-1.030) Urine Protein 1+ H (Negative) Urine Glucose (UA) Negative (Negative) Urine Ketones Trace H (Negative) Urine Blood Negative (Negative) Urine Nitrite Negative (Negative) Urine Bilirubin Negative (Negative) Urine Urobilinogen Negative (Negative) Ur Leukocyte Esterase Trace H (Negative) Urine WBC (Auto) 1-5 (0-5) /hpf Urine RBC (Auto) 0-4 (0-4) /hpf U Hyaline Cast (Auto) 1-5 (0-5) /lpf U Epithel Cells (Auto) 20-30 H (0-5) /lpf Urine Bacteria (Auto) 1+ H (Negative) Urine Mucus Present A (None Prsent) Anaplasma Smear See Comment A. phagocytophilum DNA Pending Lyme Disease IgG Ab (Negative) Lyme Disease IgM Ab (Negative) Medications Administered Ioversol (Optiray 320 125ml) 117 ml IV ONCE PRN PRN Reason: Interaction Checking Stop: 11/05/19 14:17 Last Admin: 11/01/19 14:19 Dose: 117 ml Documented by: [id number] Discontinued Medications Fentanyl Citrate (Fentanyl Citrate) 75 mcg IV NOW STA Stop: 11/01/19 17:56 Last Admin: 11/01/19 17:58 Dose: 75 mcg Documented by: [id number] Sodium Chloride (Nss 1000ml) 1,000 mls @ 999 mls/hr IV .Q1H1M ONE Stop: 11/01/19 12:48 Last Infusion: 11/01/19 13:07 Dose: 0 mls/hr Documented by: [id number] Admin: 11/01/19 12:06 Dose: 999 mls/hr Documented by: [id number] Piperacillin Sod/Tazobactam Sod (Zosyn) 4.5 gm in 120 mls @ 240 mls/hr IV NOW ONE Stop: 11/01/19 17:44 Last Infusion: 11/01/19 17:49 Dose: 0 mls/hr Documented by: [id number] Admin: 11/01/19 17:19 Dose: 240 mls/hr Documented by: [id number] Morphine Sulfate (Morphine Sulfate) 4 mg IV NOW STA Stop: 11/01/19 17:16 Last Admin: 11/01/19 17:19 Dose: 4 mg Documented by: [id number] Ondansetron HCl (Zofran) Confirm Administered Dose 4 mg .ROUTE .STK-MED ONE Stop: 11/01/19 12:19 Last Admin: 11/01/19 12:20 Dose: 4 mg Documented by: [id number] Ondansetron HCl (Zofran) 4 mg IV NOW STA Stop: 11/01/19 17:16 Last Admin: 11/01/19 17:19 Dose: 4 mg Documented by: [id number] Code Status & VTE Plan Code Status Full code VTE Prophylaxis Plan VTE Prophylaxis will be ordered: Yes Supervising Physician Co-Signing Physician Notes Pt seen and examined at the bedside with . I was involved in creating assessment and plan with Dr. Ramirez and I agree with his H&P. Physical Exam: GENERAL: Awake, alert to self and date and location but is confused about ED events. Has been quite diaphoretic which is improving. Appears uncomfortable due to abdominal pain. HENT: Normocephalic, atraumatic. Oropharynx unremarkable. EYES: Normal conjunctiva. Sclera non-icteric. NECK: Inspection normal. Non-tender. Supple and full ROM. No nuchal rigidity. CARDIAC: +S1S2 regular bradycardia, no murmurs. RESPIRATORY: Clear to auscultation. No wheezes or rales. Normal respiratory effort. GI: +BS, soft. Positive generalized distention. Positive tenderness to palpation in the right > bilateral lower quadrants. No overt peritoneal tenderness. EXTREMITIES: No pedal edema or calf tenderness. Moving all extremities naturally and easily. NEURO: No gross neuro deficits. Resident Activity Tracking Resident Involvement: Resident Care Provided Care Provided: Adult [facility]
[2019-11-01] MEDS: LACTATED RINGER'S 1,000 ML IV SCH (21:30)
[2019-11-01] MEDS ORDERED: CARBOHYDRATES FOR HYPOGLYCEMIA PO PRN (23:04)
[2019-11-01] MEDS ORDERED: GLUCOSE 40% GEL 15 GM TUBE PO PRN (23:04)
[2019-11-01] MEDS ORDERED: DEXTROSE 50% 50 ML SYRINGE IV PRN (23:04)
[2019-11-01] MEDS ORDERED: ONDANSETRON INJ 2 MG/ML 2 ML VIAL IV PRN (23:04)
[2019-11-01] MEDS ORDERED: GLUCAGON FOR INJ 1 MG VIAL SQ PRN (23:04)
[2019-11-01] MEDS ORDERED: GLUCOSE 10 TABS/TUBE PO PRN (23:04)
[2019-11-01] MEDS: CIPROFLOXACIN 400 MG/200 ML BAG IV SCH (23:36)
[2019-11-01] MEDS: metroNIDAZOLE 500 MG/100 ML BAG IV SCH (23:36)
[2019-11-01] MEDS: ACETAMINOPHEN 1,000 MG/100 ML VIAL IV SCH (23:36)
[2019-11-01] MEDS: INSULIN ASPART 100 UNITS/ML 3 ML PEN SC SCH (23:45)
[2019-11-02] MEDS: ACETAMINOPHEN 1,000 MG/100 ML VIAL IV SCH ×3 (07:14→22:49)
[2019-11-02] MEDS: metroNIDAZOLE 500 MG/100 ML BAG IV SCH ×3 (07:17→23:41)
[2019-11-02] MEDS: LACTATED RINGER'S 1,000 ML IV SCH ×3 (08:35→22:47)
[2019-11-02] MEDS: INSULIN ASPART 100 UNITS/ML 3 ML PEN SC SCH ×3 (09:24→17:10)
--- NOTE | 2019-11-02 09:50 | Surgery Progress Note ---
Date of Service November 02, 2019 Assessment & Plan (1) Intra-abdominal abscess: Iv abx working well continue NPO will likely need repeat CT scan later this week Subjective Pain is almost gone feeling alot better Review of Systems Constitutional: no fever and no chills Respiratory: no dyspnea Cardiovascular: no chest pain Gastrointestinal: + abdominal pain (minimal); no nausea, no vomiting and no change in bowel habits Genitourinary: no dysuria Musculoskeletal: no back pain Integumentary: no rash Neurologic: no localized weakness and no generalized weakness Physical Exam Constitutional: well developed and well nourished Neck: trachea midline Respiratory: normal respiratory effort, lungs clear to auscultation Cardiovascular: RRR, no murmur, no edema Gastrointestinal (Abdomen): Inspection/Auscultation: abdomen normal to inspection, + abdomen distended and normal bowel sounds Percussion/Palpation: abdomen nontender Musculoskeletal: Head/Neck/Chest: normocephalic and head atraumatic Skin: no rashes, warm and dry Results & Data Vital Signs (Past 12 Hours) Vital Signs Temp Pulse Resp BP Pulse Ox 11/02/19 08:10 36.5 C 51 L 16 106/58 L 93 11/02/19 04:13 36.5 C 50 L 19 102/59 L 95 11/02/19 00:00 36.6 C 52 L 16 119/63
[2019-11-02] MEDS: CIPROFLOXACIN 400 MG/200 ML BAG IV SCH ×2 (13:02→22:53)
--- NOTE | 2019-11-02 22:03 | Hospitalist Progress Note ---
Date of Service November 02, 2019 Assessment & Plan (1) Abdominal pain: 64-year-old male was admitted on 01 November 2019 for abdominal pain and possible syncope vs seizure vs adverse drug reaction. Abdominal pain, colonic mass versus abscess: Pain for two weeks without associated N/V/D, known fever, or bowel changes. Has a notably distended abdomen as well as lower abdominal TTP but not overtly peritoneal. - In ED, afebrile, not tachycardic or tachypneic, mild hypertension, and normal room SpO2. WBC 20, lactate 0.8. Electrolytes okay. Normal TSH and troponin. EKG NSR 66. UA is dirty. Blood and urine cultures sent. CT a/p notes almost 6 x 6 cm mass-like abnormality at the base of the cecum. Radiology read is suspicious for adenocarcinoma versus perforated cecal diverticulitis with abscess. -Patient appears to be improving as pain has decreased. - Will continue cipro and flagyl. -Will hold GI consult to primary hospitalist team. Keep NPO and on IVF. Check routine labs as well as CEA and CA 19-9 testing. Adverse drug reaction vs syncope vs seizure: See symptomatic discussion in HPI. No known history of seizures but did have a potential adverse reaction to pain medication years ago. - In ED, EKG was NSR 64. Briefly SBP 90s but improved to 110s without acute intervention. CT head noted no acute abnormality. - Hold narcotic pain meds. Tylenol IV q8h scheduled for pain. Incidental imaging findings: - Trace right pleural effusion on CTA chest. - Small hiatal hernia on CTA chest. - Minimal superior endplate compression deformities at T2-T4 on CTA chest. - Prominent ileocolic lymph nodes on CT a/p. Ongoing medical issues: - Hypertension, hyperlipidemia: Holding home amlodipine, aspirin, losartan, rosuvastatin (while NPO). - Diabetes mellitus: Sep 2019 HbA1c is 7.6. At home is on metformin. On insulin sliding scale here. - Depression: Holding home sertraline (while NPO). Code status: Full code. Diet: NPO. DVT prophy: SCDs. Hold chemical prophy in case of need for emergent surgery. (2) Colonic mass: (3) Syncope and collapse: (4) Diabetes mellitus: (5) Benign essential hypertension: (6) Hyperlipidemia: (7) Depression: (8) Hiatal hernia: Subjective Patient reports feeling better. Patient reports pain has decreased. Patient is not back at baseline yet. Review of Systems Review of Systems: All systems reviewed & are unremarkable except as noted in HPI & below Physical Exam Physical Exam: GENERAL: Awake, alert to self and date and location. Patient appears to be more comfortable HENT: Normocephalic, atraumatic. Oropharynx unremarkable. EYES: Normal conjunctiva. Sclera non-icteric. NECK: Inspection normal. Non-tender. Supple and full ROM. No nuchal rigidity. CARDIAC: +S1S2 regular bradycardia, no murmurs. RESPIRATORY: Clear to auscultation. No wheezes or rales. Normal respiratory effort. GI: +BS, soft. nontender, no rebound tenderness EXTREMITIES: No pedal edema or calf tenderness. Moving all extremities naturally and easily. NEURO: No gross neuro deficits. Results & Data Vital Signs (Past 12 Hours) Vital Signs Temp Pulse Resp BP Pulse Ox 11/02/19 19:51 36.9 C 62 16 129/68 95 11/02/19 16:29 36.8 C 54 L 18 119/71 96 11/02/19 11:59 36.6 C 52 L 20 120/70 97 PG Care Time/CCT Total # of Minutes Spent Total Time Spent with Patient: Total time spent is greater than 50% in coordination of care (as documented) at patient's floor/unit and/or counseling patient:
[2019-11-03] MEDS: ACETAMINOPHEN 1,000 MG/100 ML VIAL IV SCH ×3 (05:47→22:50)
[2019-11-03] MEDS: INSULIN ASPART 100 UNITS/ML 3 ML PEN SC SCH ×5 (05:50→23:45)
[2019-11-03] MEDS: metroNIDAZOLE 500 MG/100 ML BAG IV SCH ×3 (09:04→23:26)
[2019-11-03] MEDS: LACTATED RINGER'S 1,000 ML IV SCH ×4 (09:05→17:15)
[2019-11-03] MEDS: CIPROFLOXACIN 400 MG/200 ML BAG IV SCH ×2 (11:50→22:04)
--- NOTE | 2019-11-03 12:24 | Hospitalist Progress Note ---
Date of Service November 03, 2019 Assessment & Plan (1) Abdominal pain: 64-year-old male was admitted on 01 November 2019 for abdominal pain and possible syncope vs seizure vs adverse drug reaction. Abdominal pain, colonic mass versus abscess: Pain for two weeks without associated N/V/D, known fever, or bowel changes. Has a notably distended abdomen as well as lower abdominal TTP but not overtly peritoneal. - In ED, afebrile, not tachycardic or tachypneic, mild hypertension, and normal room SpO2. WBC 20, lactate 0.8. Electrolytes okay. Normal TSH and troponin. EKG NSR 66. UA is dirty. Blood and urine cultures sent. CT a/p notes almost 6 x 6 cm mass-like abnormality at the base of the cecum. Radiology read is suspicious for adenocarcinoma versus perforated cecal diverticulitis with abscess. -Patient appears to be improving as pain has decreased. - Will continue cipro and flagyl. -Will hold GI consult to primary hospitalist team. -Keep NPO for another 24 hours,and keep on IVF. -will start clear liquid diet in AM of 11/04 Check routine labs as well as CEA (negative) and CA 19-9 (pending) testing. Adverse drug reaction vs syncope vs seizure: See symptomatic discussion in HPI. No known history of seizures but did have a potential adverse reaction to pain m edication years ago. - In ED, EKG was NSR 64. Briefly SBP 90s but improved to 110s without acute intervention. CT head noted no acute abnormality. - Hold narcotic pain meds. Tylenol IV q8h scheduled for pain. Incidental imaging findings: - Trace right pleural effusion on CTA chest. - Small hiatal hernia on CTA chest. - Minimal superior endplate compression deformities at T2-T4 on CTA chest. - Prominent ileocolic lymph nodes on CT a/p. Ongoing medical issues: - Hypertension, hyperlipidemia: Holding home amlodipine, aspirin, losartan, rosuvastatin (while NPO). - Diabetes mellitus: Sep 2019 HbA1c is 7.6. At home is on metformin. On insulin sliding scale here. - Depression: Holding home sertraline (while NPO). Code status: Full code. Diet: NPO. DVT prophy: SCDs. Hold chemical prophy in case of need for emergent surgery. will transfer patient to Medical. Updated on second visit with patient. (2) Colonic mass: (3) Syncope and collapse: (4) Diabetes mellitus: (5) Benign essential hypertension: (6) Hyperlipidemia: (7) Depression: (8) Hiatal hernia: Subjective 64 yo male reports that his main complaint is that he is having multiple loose stools today and has also been burping. He feels his pain is also better controlled. Review of Systems Review of Systems: All systems reviewed & are unremarkable except as noted in HPI & below Physical Exam Physical Exam: GENERAL: Awake, alert to self and date and location. Patient appears to be more comfortable HENT: Normocephalic, atraumatic. Oropharynx unremarkable. EYES: Normal conjunctiva. Sclera non-icteric. NECK: Inspection normal. Non-tender. Supple and full ROM. No nuchal rigidity. CARDIAC: +S1S2 regular bradycardia, no murmurs. RESPIRATORY: Clear to auscultation. No wheezes or rales. Normal respiratory effort. GI: +BS, soft. nontender, no rebound tenderness, decreased peristalsis on ausculation EXTREMITIES: No pedal edema or calf tenderness. Moving all extremities naturally and easily. NEURO: No gross neuro deficits. Results & Data Vital Signs (Past 12 Hours) Vital Signs Temp Pulse Resp BP BP Pulse Ox 11/03/19 11:43 36.7 C 52 L 19 134/67 93 11/03/19 08:13 36.5 C 56 L 18 117/68 93 11/03/19 03:58 36.6 C 52 L 18 108/59 L 96 PG Care Time/CCT Total # of Minutes Spent Total Time Spent with Patient: Total time spent is greater than 50% in coordination of care (as documented) at patient's floor/unit and/or counseling patient:
[2019-11-03 12:57] LABS: Basophils # (auto) 0.01 K/uL (0-0.2); Basophils % (auto) 0.1 %; Eosinophils # (auto) 0.28 K/uL (0-0.5); Eosinophils % (auto) 3.3 %; Hematocrit (blood only) 37.6 % (42-52); Hemoglobin 12.6 g/dL (14.0-18.0); Immature Granulocytes # (auto) 0.01 K/uL (0.00-0.02); Immature Granulocytes % (auto) 0.1 %; Lymphocytes # (auto) 1.83 K/uL (1.2-3.4); Lymphocytes % (auto) 21.6 %; Mean Corpuscular Hemoglobin 29.2 pg (25-34); Mean Corpuscular Hgb Conc 33.5 g/dL (32-36); Mean Platelet Volume 9.8 fL (7.4-10.4); Monocytes # (auto) 0.38 K/uL (0.11-0.59); Monocytes % (auto) 4.5 %; Neutrophils # (auto) 5.98 K/uL (1.4-6.5); Neutrophils % (auto) 70.4 %; Platelet Count 288 K/uL (130-400); RDW Coefficient of Variation 13.6 % (11.5-14.5); RDW Standard Deviation 43.7 fL (36.4-46.3); Red Blood Count 4.32 M/uL (4.7-6.1); White Blood Count 8.49 K/uL (4.8-10.8)
[2019-11-03 13:21] LABS: BUN Creatinine Ratio 14.6 (10-20); Calcium 8.4 mg/dl (8.5-10.1); Creatinine Clr Calc Pharmacy 100.8 ml/min; Est GFR (African American) 92.2; Est GFR (Non-African American) 79.6; Potassium 3.8 mmol/L (3.5-5.1)
--- NOTE | 2019-11-03 13:42 | Surgery Progress Note ---
Date of Service November 03, 2019 Assessment & Plan (1) Perforation of cecum due to diverticulitis: doing well agree with clears soon tonight or tomorrow would have GI see as will need colonoscopy prior to right colon resection ideally will plan as outpatient once acute episode resolves Present on Admission?: Yes Subjective clinically improved Review of Systems Constitutional: no fever and no chills Respiratory: no dyspnea Cardiovascular: no chest pain Gastrointestinal: no abdominal pain, no nausea and no vomiting Genitourinary: no dysuria Musculoskeletal: no back pain Physical Exam Constitutional: well developed; not ill appearing Neck: trachea midline Respiratory: normal respiratory effort, lungs clear to auscultation Cardiovascular: RRR, no murmur, no edema Gastrointestinal (Abdomen): Inspection/Auscultation: abdomen normal to inspection and normal bowel sounds; abdomen not distended Percussion/Palpation: abdomen nontender and no guarding Musculoskeletal: Head/Neck/Chest: normocephalic and head atraumatic Skin: no rashes, warm and dry Psychiatric: Orientation: alert and oriented x 3 Results & Data Vital Signs (Past 12 Hours) Vital Signs Temp Pulse Resp BP BP Pulse Ox 11/03/19 11:43 36.7 C 52 L 19 134/67 93 11/03/19 08:13 36.5 C 56 L 18 117/68 93 11/03/19 03:58 36.6 C 52 L 18 108/59 L 96
[2019-11-04] MEDS: LACTATED RINGER'S 1,000 ML IV SCH ×2 (03:40→12:18)
[2019-11-04] MEDS: ACETAMINOPHEN 1,000 MG/100 ML VIAL IV SCH ×2 (05:58→13:44)
[2019-11-04] MEDS: INSULIN ASPART 100 UNITS/ML 3 ML PEN SC SCH ×3 (06:44→18:04)
[2019-11-04] MEDS: metroNIDAZOLE 500 MG/100 ML BAG IV SCH ×2 (08:21→17:42)
[2019-11-04] MEDS: CIPROFLOXACIN 400 MG/200 ML BAG IV SCH ×2 (11:10→22:26)
--- NOTE | 2019-11-04 14:32 | Surgery Progress Note ---
Date of Service November 04, 2019 Assessment & Plan (1) Perforation of cecum due to diverticulitis: doing well minimal abdominal pain afebrile Plan: advance diet slowly as tolerated continue IV abx until discharge, would recommend total of 14 days of abx therapy. Will need to discuss with attending timing of repeat CT scan of abd/pelvis. prior to discharge or outpatient. will need outpatient follow-up with GI for colonoscopy in 6-8 weeks low fiber diet recommended on discharge Discussed with Dr. Lau who agrees with above and is to evaluate patient later this afternoon. Subjective feeling well no nausea or vomiting no abdominal pain, only when pressed on diarrhea since antibiotics were started urinating without difficulty Physical Exam Constitutional: WD/WN, vitals as above no acute distress Respiratory: normal respiratory effort; no respiratory distress Gastrointestinal (Abdomen): Inspection/Auscultation: abdomen normal to inspection and normal bowel sounds; abdomen not distended Percussion/Palpation: abdomen soft; abdomen nontender, no guarding and abdomen not rigid Skin: no rashes, warm and dry Psychiatric: A+Ox3, euthymic affect Results & Data Vital Signs (Past 12 Hours) Vital Signs Temp Pulse Resp BP Pulse Ox 11/04/19 06:59 36.8 C 60 16 159/76 H 94 Laboratory Results 11/04/19 11/04/19 11/04/19 Range/Units 12:14 08:07 05:40 POC Glucose 106 H 89 93 (70-99) CA 19-9 Antigen (<34) U/mL Stl C. diff Tox B Gene (Neg) A. phagocytophilum DNA (Not Detected) 11/03/19 11/03/19 11/03/19 Range/Units 23:37 17:58 14:05 POC Glucose 88 82 (70-99) CA 19-9 Antigen (<34) U/mL Stl C. diff Tox B Gene Negative Cdiff Gene (Neg) A. phagocytophilum DNA (Not Detected) 11/01/19 11/01/19 Range/Units 23:07 12:05 POC Glucose (70-99) CA 19-9 Antigen 3 (<34) U/mL Stl C. diff Tox B Gene (Neg) A. phagocytophilum DNA Not Detected (Not Detected)
--- NOTE | 2019-11-04 21:04 | Hospitalist Progress Note ---
Date of Service November 04, 2019 Assessment & Plan (1) Perforation of cecum due to diverticulitis: Diet advanced to full liquid today. If doing well will start soft diet tomorrow. Potential discharge for tomorrow as long as he remains stable. Continue IV antibiotics as per surgery recommendations. Will switch to PO on discharge, agree with 14 days total Abx. Discussed with Dr Guerrero regarding timing of colonoscopy (recommended at least 6 weeks) and will try to arrange clinic visit prior to this or if not possible Dr David will review and arrange colonoscopy when back in the office. Follow up with surgery on discharge ?timing of repeat CT. (2) Abdominal pain: Incidental findings: - Trace right pleural effusion on CTA chest. - Small hiatal hernia on CTA chest. - Minimal superior endplate compression deformities at T2-T4 on CTA chest. - Prominent ileocolic lymph nodes on CT a/p (3) Colonic mass: Reassuringly CEA negative although discussed importance of needing follow up with colonoscopy with patient and his . (4) Syncope and collapse: Unresponsive episode in ER associated with hypotension, bradycardia, incontinence and opiates given (fentanyl 75 mcg and morphine 4mg). (5) Diabetes mellitus: Stop BSG ACHS and insulin sliding scale as not needed at the current time. Suspect due to reduced carbohydrate intake. (6) Benign essential hypertension: Recently diagnosed. D/C losartan. (7) Hyperlipidemia: Holding rosuvastatin given for primary prevention and current acute illness. (8) Depression: Restart sertraline (9) Hiatal hernia: Noted (10) DVT prophylaxis: SCDs. Not previously started on chemoprophylaxis by prior providers. Since he is now mobile and close to discharge will defer starting at this stage. (11) Discharge planning issues: Possible discharge tomorrow as long as ok from surgical stand point. Follow up colonoscopy in 6 weeks. Subjective Patient feeling well today. Feels he has been ready to eat for the past 48 hours. Wondering when he is going home. No abdominal pain unless palpated. No nausea, vomiting, diarrhea or constipation. Review of Systems Review of Systems: All systems reviewed & are unremarkable except as noted in HPI & below Physical Exam Constitutional: WD/WN, vitals as above + obese Eyes: + anicteric sclerae; normal pupil size Respiratory: normal respiratory effort, lungs clear to auscultation Cardiovascular: RRR, no murmur, no edema Gastrointestinal (Abdomen): Percussion/Palpation: + abdomen tender (RLQ pain on deep palpation) Musculoskeletal: no cyanosis or clubbing, extremities motor strength 5/5 Skin: no rashes, warm and dry Neurologic: moves all extremities and awake; not confused Psychiatric: A+Ox3, euthymic affect Results & Data Vital Signs (Past 12 Hours) Vital Signs Temp Pulse Resp BP Pulse Ox 11/04/19 15:09 36.5 C 53 L 17 139/75 92 PG Care Time/CCT Total # of Minutes Spent Total Time Spent with Patient: Total time spent is greater than 50% in coordination of care (as documented) at patient's floor/unit and/or counseling patient: (1) Diabetes mellitus Diabetes mellitus complication status: without complication Diabetes mellitus jail insulin use: without terminal worker use Diabetes mellitus type: type 2 Qualified Code(s): E11.9 - Type 2 diabetes mellitus without complications (2) Depression Depression Type: unspecified Qualified Code(s): F32.9 - Major depressive disorder, single episode, unspecified (3) Hyperlipidemia Hyperlipidemia type: unspecified Qualified Code(s): E78.5 - Hyperlipidemia, unspecified
[2019-11-04] MEDS: ACETAMINOPHEN 500 MG TAB PO SCH (22:26)
[2019-11-05] MEDS: metroNIDAZOLE 500 MG/100 ML BAG IV SCH ×2 (00:18→09:09)
[2019-11-05 05:35] LABS: Hematocrit (blood only) 37.2 % (42-52); Hemoglobin 12.8 g/dL (14.0-18.0); Mean Corpuscular Hemoglobin 29.4 pg (25-34); Mean Corpuscular Hgb Conc 34.4 g/dL (32-36); Mean Corpuscular Volume 85.5 fL (80-100); Mean Platelet Volume 10.1 fL (7.4-10.4); Platelet Count 307 K/uL (130-400); RDW Coefficient of Variation 13.4 % (11.5-14.5); RDW Standard Deviation 41.9 fL (36.4-46.3); Red Blood Count 4.35 M/uL (4.7-6.1); White Blood Count 7.62 K/uL (4.8-10.8)
[2019-11-05] MEDS: ACETAMINOPHEN 500 MG TAB PO SCH (05:59)
[2019-11-05 06:01] LABS: Albumin Level 2.6 gm/dl (3.4-5.0); BUN Creatinine Ratio 8.6 (10-20); Calcium 8.3 mg/dl (8.5-10.1); Est GFR (African American) 105.5; Potassium 3.4 mmol/L (3.5-5.1)
[2019-11-05 06:05] LABS: Albumin Globulin Ratio 0.7 (0.9-2); Bilirubin,Total 0.3 mg/dl (0.2-1); Globulin 3.7 gm/dl (2.5-4.0); Total Protein 6.3 gm/dl (6.4-8.2)
[2019-11-05] MEDS ORDERED: SERTRALINE HCL 100 MG TABLET PO SCH (09:00)
[2019-11-05] MEDS ORDERED: ACETAMINOPHEN 325 MG TAB PO PRN (09:11)
[2019-11-05] MEDS: CIPROFLOXACIN 400 MG/200 ML BAG IV SCH (10:16)
--- NOTE | 2019-11-05 10:18 | Surgery Progress Note ---
Date of Service November 05, 2019 Assessment & Plan (1) Abdominal pain: Etiology shows either evidence of perforated diverticulitis or mass of the cecum. Symptomatically he is completely resolved His white blood cell count is normal Has not had fever Can advance to a low fiber diet and if tolerates consider discharge on oral antibiotics. He will need a colonoscopy in the next 4 to 6 weeks No indication for immediate surgical intervention at this time Subjective Feels well today Denies abdominal pain Passing flatus and having loose bowel movements Denies nausea and vomiting Tolerated full liquid diet Physical Exam Gastrointestinal (Abdomen): Inspection/Auscultation: normal bowel sounds; abdomen not distended Percussion/Palpation: abdomen soft; abdomen nontender and no abdominal mass Results & Data Vital Signs (Past 12 Hours) Vital Signs Temp Pulse Pulse Resp BP BP Pulse Ox 11/05/19 07:38 36.8 C 54 L 14 159/85 H 93 11/05/19 00:20 11/04/19 23:02 36.9 C 57 L 18 158/74 H 94 Pulse Ox 11/05/19 07:38 11/05/19 00:20 94 11/04/19 23:02 Laboratory Results 11/05/19 11/05/19 11/04/19 Range/Units 04:44 04:44 20:33 WBC 7.62 (4.8-10.8) K/uL RBC 4.35 L (4.7-6.1) M/uL Hgb 12.8 L (14.0-18.0) g/dL Hct 37.2 L (42-52) % MCV 85.5 (80-100) fL MCH 29.4 (25-34) pg MCHC 34.4 (32-36) g/dL RDW Std Deviation 41.9 (36.4-46.3) fL RDW Coeff of Sean 13.4 (11.5-14.5) % Plt Count 307 (130-400) K/uL MPV 10.1 (7.4-10.4) fL Sodium 140 (136-145) mmol/L Potassium 3.4 L (3.5-5.1) mmol/L Chloride 106 (98-107) mmol/L Carbon Dioxide 28 (21-32) mmol/L Anion Gap 6.0 (3-11) BUN 7 D (7-18) mg/dl Creatinine 0.86 (0.6-1.4) mg/dl Est Cr Clr Drug Dosing 116.0 ml/min Est GFR ( Amer) 105.5 Est GFR (Non-Af Amer) 91.0 BUN/Creatinine Ratio 8.6 L (10-20) Glucose 106 H (70-99) mg/dl POC Glucose 115 H (70-99) Calcium 8.3 L (8.5-10.1) mg/dl Total Bilirubin 0.3 (0.2-1) mg/dl AST 65 H (15-37) U/L ALT 92 H (12-78) U/L Alkaline Phosphatase 90 (45-117) U/L Total Protein 6.3 L (6.4-8.2) gm/dl Albumin 2.6 L (3.4-5.0) gm/dl Globulin 3.7 (2.5-4.0) gm/dl Albumin/Globulin Ratio 0.7 L (0.9-2) CA 19-9 Antigen (<34) U/mL A. phagocytophilum DNA (Not Detected) 11/04/19 11/04/19 11/01/19 Range/Units 17:13 12:14 23:07 WBC (4.8-10.8) K/uL RBC (4.7-6.1) M/uL Hgb (14.0-18.0) g/dL Hct (42-52) % MCV (80-100) fL MCH (25-34) pg MCHC (32-36) g/dL RDW Std Deviation (36.4-46.3) fL RDW Coeff of Sean (11.5-14.5) % Plt Count (130-400) K/uL MPV (7.4-10.4) fL Sodium (136-145) mmol/L Potassium (3.5-5.1) mmol/L Chloride (98-107) mmol/L Carbon Dioxide (21-32) mmol/L Anion Gap (3-11) BUN (7-18) mg/dl Creatinine (0.6-1.4) mg/dl Est Cr Clr Drug Dosing ml/min Est GFR ( Amer) Est GFR (Non-Af Amer) BUN/Creatinine Ratio (10-20) Glucose (70-99) mg/dl POC Glucose 92 106 H (70-99) Calcium (8.5-10.1) mg/dl Total Bilirubin (0.2-1) mg/dl AST (15-37) U/L ALT (12-78) U/L Alkaline Phosphatase (45-117) U/L Total Protein (6.4-8.2) gm/dl Albumin (3.4-5.0) gm/dl Globulin (2.5-4.0) gm/dl Albumin/Globulin Ratio (0.9-2) CA 19-9 Antigen 3 (<34) U/mL A. phagocytophilum DNA (Not Detected) 11/01/19 Range/Units 12:05 WBC (4.8-10.8) K/uL RBC (4.7-6.1) M/uL Hgb (14.0-18.0) g/dL Hct (42-52) % MCV (80-100) fL MCH (25-34) pg MCHC (32-36) g/dL RDW Std Deviation (36.4-46.3) fL RDW Coeff of Sean (11.5-14.5) % Plt Count (130-400) K/uL MPV (7.4-10.4) fL Sodium (136-145) mmol/L Potassium (3.5-5.1) mmol/L Chloride (98-107) mmol/L Carbon Dioxide (21-32) mmol/L Anion Gap (3-11) BUN (7-18) mg/dl Creatinine (0.6-1.4) mg/dl Est Cr Clr Drug Dosing ml/min Est GFR ( Amer) Est GFR (Non-Af Amer) BUN/Creatinine Ratio (10-20) Glucose (70-99) mg/dl POC Glucose (70-99) Calcium (8.5-10.1) mg/dl Total Bilirubin (0.2-1) mg/dl AST (15-37) U/L ALT (12-78) U/L Alkaline Phosphatase (45-117) U/L Total Protein (6.4-8.2) gm/dl Albumin (3.4-5.0) gm/dl Globulin (2.5-4.0) gm/dl Albumin/Globulin Ratio (0.9-2) CA 19-9 Antigen (<34) U/mL A. phagocytophilum DNA Not Detected (Not Detected)
--- NOTE | 2019-11-05 15:20 | Discharge Summary ---
Date of Service November 05, 2019 Admission HPI Per Admitting Provider 64-year-old male presents complaining of right lower quadrant regional abdominal pain over the past two weeks. Denies any history of the same, nausea or vomiting or diarrhea, or known fevers. On review of systems, he notes some dyspnea with exertion for the past few months but no related chest pain. No other acute patient concerns initially. - While in the ED, patient received initial doses of morphine and Zosyn. Per the , after the morphine the patient had the feeling of increased abdominal gas pains. Some brief time later he was given a dose of fentanyl. Patient then complained to his that he had much greater abdominal gas pains and wanted to walk it off. The patient was able to stand at the side of the bed when, according to his , he immediately became bright red flushed and then co llapsed back onto the bed. He remained immobile for 45 to 60 seconds and was incontinent. Since that time patient has remained amnestic to these events and is a bit confused though is alert and grossly oriented. - At the time of this H&P, patient does not recall the events of this syncope vs seizure. He and his states that many years ago he had an abscessed tooth. He received some unknown pain medication at that time and had an adverse reaction a few hours later. He says related evaluation for this was inconclusive but he does not know specifics. He continues to complain of genera lized abdominal pain. He is also noted to be transiently acutely diaphoretic but denies any acute chest pain or difficulty breathing. - Past medical history includes hypertension, hyperlipidemia, diabetes, depression. - Past surgical history includes cholecystectomy, appendectomy, colonoscopy. - Social history includes former smoker. Rare alcohol use. Lives at home with spouse. Admission Exam Per Admitting Provider GENERAL: Awake, alert to self and date and location but is confused about ED events. Has been quite diaphoretic which is improving. Appears uncomfortable due to abdominal pain. HENT: Normocephalic, atraumatic. Oropharynx unremarkable. EYES: Normal conjunctiva. Sclera non-icteric. NECK: Inspection normal. Non-tender. Supple and full ROM. No nuchal rigidity. CARDIAC: +S1S2 regular bradycardia, no murmurs. RESPIRATORY: Clear to auscultation. No wheezes or rales. Normal respiratory effort. GI: +BS, soft. Positive generalized distention. Positive tenderness to palpation in the right > bilateral lower quadrants. No overt peritoneal tenderness. EXTREMITIES: No pedal edema or calf tenderness. Moving all extremities naturally and easily. NEURO: No gross neuro deficits. Principal Diagnosis Diverticulitis with contained perforation Colon mass Syncope with bradycardia and hypotension due to Fentanyl Discharge Exam Constitutional WD/WN, vitals as above + obese Eyes + anicteric sclerae; normal pupil size Respiratory normal respiratory effort, lungs clear to auscultation Cardiovascular RRR, no murmur, no edema Gastrointestinal (Abdomen) Percussion/Palpation: + abdomen tender (RLQ pain on deep palpation) Musculoskeletal no cyanosis or clubbing, extremities motor strength 5/5 Skin no rashes, warm and dry Neurologic moves all extremities and awake; not confused Psychiatric A+Ox3, euthymic affect Discharge Data Allergies Allergy/AdvReac Type Severity Reaction Status Date / Time fentanyl Allergy Unconscious Verified 11/14/19 11:40 rosuvastatin AdvReac headache Verified 11/14/19 11:40 Consultations 11/01/19 18:07 ED Decision to Admit Stat 11/01/19 23:04 Consult General Surgery Routine Ordered Studies 11/01/19 11:48 CT abd pelvis oral and IV con Stat CT angio chest PE protocol Stat 11/01/19 18:26 CT head/brain wo con Stat Hospital Course (1) Perforation of cecum due to diverticulitis: Luis Enrique Win is a 64 year old male admitted to [facility] from November 01 to 2018 due to abdominal pain. He was diagnosed with diverticulitis on CT and treated with IV antibiotics. He was switched to cipro + metronidazole on discharge. His CT was also concerning for evidence of either perforated diverticulitis or mass in the cecum. We have left a message with [facility] to follow up with a colonoscopy in approximately 6 weeks after discharge. He has not required metformin to manage your sugars while admitted, suspect due to decreased oral intake. Recommend this is reintroduced when he follows up with his PCP if abdominal pain does not return so as not to obscure a picture of worsening diverticulitis. Due to low blood pressures your antihypertensives were discontinued while admitted. Losartan was re-introduced on discharge at a lower dose. (2) Abdominal pain: (3) Colonic mass: (4) Syncope and collapse: (5) Diabetes mellitus: (6) Benign essential hypertension: (7) Hyperlipidemia: (8) Depression: (9) Hiatal hernia: Total Time Total Time Spent Total Time Spent (In Minutes): 40 Total Time Includes: Examination of the Patient, Discharge Planning, Medication Reconciliation and Communication With Other Providers Discharge Plan Discharge Items Patient Disposition: Home - Self-Care Reason For Visit: ABD PAIN,COLONIC MASS,SYNCOPE Discharge Diagnosis: Diverticulitis with contained perforation Colon mass Syncope with bradycardia and hypotension due to Fentanyl Activity: Per Instructions section Non-emergency contact: Primary Care Provider Call non-emergency contact if: you have any medication questions, your symptoms worsen, you have a fever and your temperature is above 101 Follow-up/Referrals: Lupe Jacob MD [Primary Care Provider] - 11/14/19 11:30 am (Please, follow up with Dr. Jacob on November 14 at 11:30 am. *If you need to change this appointment, call the office at [phone].) Gordon Traylor MD [Physician] - (Please, follow up with Dr. Gordon Traylor (surgeon). *A nurse from this office will call you with appointment details. The office is located in [facility] at [address] in [place]. If you have any questions, call the office at [phone].) Dipesh David [Physician] - (Please, follow up at [facility] with Dr. Dipesh David for a colonoscopy. *A nurse from this office will contact you with appointment details. The office is located at [address] [place] [address] in [place], next to [facility]. If you have any questions, call the office at [phone].) Diet: Low Fiber Addtl Attending Provider Instructions: You were admitted to [facility] from November 01 to 2018 due to abdominal pain. You were diagnosed with diverticulitis and treated with IV antibiotics. Please continue oral antibiotics as prescribed. Recommend using probiotics (containing lactobacillus) while on antibiotics to reduce the risk of antibiotic associated diarrhea. Please continue on a low fiber diet for the next 48 hours then advance to a normal diet as long as your abdominal pain does not return. Low fiber foods: cooked, red meat, fish, chicken, eggs, dairy products High fiber foods: whole grains, nuts, fresh vegetables (especially skins, broccoli, beans). Your CT was also concerning for evidence of either perforated diverticulitis or mass in the cecum - as discussed you need a follow up colonoscopy to evaluate this further in approximately [address] David's office have been contacted to arrange this. If you have not heard anything after 7 working days please his office number above. You have not required metformin to manage your sugars while admitted, suspect due to decreased oral intake. Recommend this is reintroduced when you follow up with your primary care provider as most common side effect is abdominal cramping which may obscure a picture of worsening diverticulitis. If burping continues recommend taking Zantac over the counter and discussing further treatment with your primary care provider if persistent. Due to low blood pressures your antihypertensives were discontinued while admitted. Recommend restarting on losartan at a lower dose as prescribed and following up with your PCP for further adjustments as required. No lifting while on antibiotics due to increased risk of tendon rupture while on ciprofloxacin. Recommend light lifting up to 10lb after this. Pending Studies at Discharge: No Stand-Alone Forms: Call Back Authorization, [facility], Work/School Release (Inpt), Smoking Cessation Medications and DC Order Prescriptions: New ciprofloxacin HCl 500 mg tablet 500 mg PO BID 11 Days Qty: 22 RF: 0 Continued sertraline 100 mg tablet 100 mg PO DAILY Qty: 90 RF: 0 triamcinolone acetonide 0.1 % cream 1 appln TOP BID PRN (Reason: rash) Qty: 30 RF: 0 PreserVision AREDS-2 [id number] capsule 1 tab PO QPM RF: 0 aspirin 81 mg tablet 81 mg PO DAILY Qty: 30 RF: 0 rosuvastatin [Crestor] 5 mg tablet 5 mg PO QPM RF: 0 Changed losartan 100 mg tablet 50 mg PO DAILY Qty: 90 RF: 0 Discontinued amlodipine 2.5 mg tablet 2.5 mg PO DAILY Qty: 90 RF: 0 metformin 500 mg tablet extended release 24 hr 500 mg PO BID RF: 0 Discharge Orders: Discharge Order (Routine); Ordered 11/05/19 Ordered By: Jung Allison/Other Patient Handouts: Diverticulitis Dc Admission Data Admit Date/Time: 11/01/19 19:16 Attending Provider: Jung Odonnell Admit Provider: Guicho Chandler Primary Care Provider: Lupe Jacob Other Providers: Esteban English ; Cb Christian Other Interventions: Discharge Summary Assessment (RN) Last Done: 11/05/19 15:58 DC Date/Time DO NOT enter until pt leaves facility: 11/05/19 16:45
== END 2019-11-05 16:45 | disposition home or self-care (01) | DRG 392 ==
LOC: ED 11:12 → 2E 19:16 → SUATTDRO 19:16 → 2E 19:48 → 3N 11-03 15:50